=== PATIENT | male | born 1975 | race Caucasian/White ===

== ENCOUNTER 2024-06-30 19:12 | Emergency (ER) | payer OTHER, SELFPAY ==
[2024-06-30 19:14] VITALS: BP 198/98
[2024-06-30 19:38] LABS: % Basophils 0.8 % (0-2); % Immature Granulocytes 0.9 % (0-0.5); % Lymphocytes 21.7 % (20.5-51.1); % Monocytes 7.2 % (1.7-9.3); % Neutrophils 66.4 % (42.2-75.2); Absolute Basophils 0.1 10^3/uL (0-0.2); Absolute Eosinophils 0.2 10^3/uL (0-0.7); Absolute Immature Granulocytes 0.1 10^3/uL (0-0.05); Absolute Lymphocytes 1.4 10^3/uL (1.2-3.4); Absolute Monocytes 0.5 10^3/uL (0.1-0.6); Absolute Neutrophils 4.3 10^3/uL (1.4-6.5); Hematocrit 36.8 % (39.0-52.0); Mean Corp Hgb Conc. 35.3 g/dL (33.0-37.0); Mean Corpuscular Hgb 31.1 pg (27.0-31.0); Nucleated Red Blood Cells % 0 % (-); Platelet Count 219 10^3/uL (130-400); Red Blood Cell Count 4.18 10^6/uL (4.70-6.10); Red Cell Dist. Width 13.2 % (11.5-14.5); White Blood Cell Count 6.4 10^3/uL (4.8-10.8)
[2024-06-30 19:39] LABS: Urine Albumin 3+ (Neg - Trace); Urine Bilirubin Negative (Negative); Urine Character Clear (Clear); Urine Color Yellow; Urine Glucose 4+ (Negative); Urine Ketone Negative (Negative); Urine Leukocyte 2+ (Negative); Urine Nitrite Negative (Negative); Urine Occult Blood 3+ (Negative); Urine Specific Gravity 1.015 (<1.030); Urine Urobilinogen Negative (Neg - 1+)
[2024-06-30 19:49] LABS: ALT (SGPT) 52 U/L (0-50); AST (SGOT) 30 U/L (17-59); Albumin 4.4 g/dl (3.5-5.0); Alkaline Phosphatase 91 U/L (38-126); Blood Urea Nitrogen 25 mg/dl (9-20); Calcium 9.8 mg/dl (8.4-10.2); Carbon Dioxide 25 mmol/L (22-30); Chloride 102 mmol/L (98-107); Glucose 243 mg/dl (70-99); Potassium 4.7 mmol/L (3.5-5.1); Sodium 137 mmol/L (135-145); Total Bilirubin 0.8 mg/dl (0.2-1.3); Total Protein 7.2 g/dl (6.3-8.2); eGFR > 60.00
[2024-06-30 19:56] LABS: Urine Bacteria Few (Negative); Urine Yeast Few (Negative)
--- NOTE | 2024-06-30 22:21 | ED.GENMED ---
History of Present Illness
General
Chief Complaint: Flank Pain
Time Seen by Provider: 06/30/24 22:21
History of Present Illness
History of Present Illness:
TIME OF INITIAL ENCOUNTER: 10:20 PM
HPI: The patient presents with pain in the left infrascapular region that started about a week ago and has been persisting despite trying tramadol. The tramadol caused constipation. He then stopped tramadol. The pain then progressed down to the
left flank region. Ibuprofen has not helped. No fevers. No abdominal pain.
EXAM:
GENERAL: Elevated BMI, appears uncomfortable, laying on his right side
HEENT: Moist oral mucosa
CARDIOVASCULAR: No murmurs, borderline tachycardic heart rate, regular rhythm, No chest wall tenderness
PULMONARY: No respiratory distress, breath sounds are clear and equal
ABDOMEN: Soft with no peritoneal signs, no tenderness
NEUROLOGIC: Excellent strength all extremities, no coordination deficits
PSYCHIATRIC: Appropriate mental status, normal insight and judgement
BACK: Some vague tenderness to palpation in the left infrascapular region and left CVA region, negative straight leg raise
EXTREMITIES: Nontender, no edema, moves all extremities equally
SKIN: No rash, no lesions
NUMBER AND COMPLEXITY OF PROBLEMS ADDRESSED AT THE ENCOUNTER
� Chronic conditions affecting care: Hyperlipidemia, IDDM, ADHD, CLEOPATRA on CPAP
� Acute Exacerbation and/or Progression of Chronic Illness: This is an acute problem
� Differential Diagnosis includes: Musculoskeletal back pain, ureteral stone, pyelonephritis, UTI, constipation
AMOUNT AND/OR COMPLEXITY OF DATA TO BE REVIEWED AND ANALYZED
� I performed an independent evaluation of and my interpretation is:
EKG:
CT: Noncontrast CT of the abdomen pelvis shows no hydronephrosis and no sign of stone; I personally viewed the CT I do not see any clear evidence of constipation
X-rays:
Laboratory Studies: White count normal, hemoglobin normal, chemistries unremarkable BUN is 25 and glucose is 243, 3+ blood noted on urinalysis, 6-10 white cells
Other:
� Review of other/old records: Reviewed records, patient's blood sugars had been 100-300 range in the past
� Clinical information was obtained by an independent historian: None needed
� Prescriptions/Medications Considered but not given:
� Further testing considered but not performed:
RISK OF COMPLICATIONS AND/OR MORBIDITY OR MORTALITY OF PATIENT MANAGEMENT
� Social determinants of health affecting care: Lives at home
� Discussion with other providers:
� Escalation of care including admission/observation vs risk of discharge considered: The patient primarily has pain in the left side of the back described as stabbing and worsened with certain position changes. CT imaging
unremarkable. Patient does have some blood in the urine but no sign of stone. White blood cell count is normal.
ANY OTHER UPDATES:
11:30 PM: Patient reports some improvement after Toradol was given�he requested an additional dose
12:25 AM: Patient reports overall improvement after second dose of Toradol was given. Suspect musculoskeletal etiology he will increase NSAID use at home. Renal function normal.
Past History
Past History
ED Past Medical History: HTN, Hypercholesterolemia, IDDM, Psychiatric (ADHD) and Other (Pancreatitis, sleep apnea, morbid obesity, insomnia)
ED Past Surgical History: Other (Hernia repair)
Social History
Tobacco: Non-smoker
Alcohol: None
Drug: None
Personal:
Living: with family
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
Family History
Family History: Other (Noncontributory)
Phy Exam
Physical Exam
Physical Exam:
See HPI
Course
Orders/Labs/Results
Orders:
Orders
06/30/24 19:27
Complete Blood Count/With Diff Urgent
Comprehensive Metabolic Panel Urgent
Urinalysis Reflex To Culture Urgent
Date Specimen was Collected: 06/30/24
Time Specimen was Collected: 19:17
Urine Microscopic Reflex Cult Urgent
Urine Culture Urgent
INDIA Source: U
Specimen Description:
Date Specimen was Collected: 06/30/24
Time Specimen was Collected: 19:17
06/30/24 19:58
Abdomen/Pelvis wo Contrast CT [CT Abd/pelvis Wo Iv Cont] Urgent
Comment:
Reason For Exam: C/O FLANK PAIN
06/30/24 22:30
0.9% Sodium Chloride 1000 ml [Nss] 1,000 ml IV BOLUS
Ketorolac [Toradol] 15 mg IV NOW STA
06/30/24 23:37
Ketorolac [Toradol] 15 mg IV NOW STA
Abnormal Lab Results
06/30/24
19:27
RBC 4.18 L 10^6/uL
(4.70-6.10)
Hct 36.8 L %
(39.0-52.0)
MCH 31.1 H pg
(27.0-31.0)
MPV 11.0 H fL
(7.4-10.4)
Abs Immat Gran (auto) 0.1 H 10^3/uL
(0-0.05)
Immature Gran % 0.9 H %
(0-0.5)
BUN 25 H mg/dl
(9-20)
Glucose 243 H mg/dl
(70-99)
ALT 52 H U/L
(0-50)
Ur Occult Blood Reflex 3+ A
(Negative)
Leukocyte Esterase Rfl 2+ A
(Negative)
Urine RBC 7-10 A /HPF
(0-2)
Urine Bacteria (Reflex) Few A
(Negative)
Urine Yeast Few A
(Negative)
Urine Glucose 4+ A
(Negative)
Urine Albumin (Reflex) 3+ A
(Neg - Trace)
06/30/24 19:27
06/30/24 19:27
Vital Signs
Initial and Last Documented VS:
Initial Vital Signs
Temp Pulse Resp BP Pulse Ox
36.9 C 117 18 198/98 98
06/30/24 19:14 06/30/24 19:14 06/30/24 19:14 06/30/24 19:14 06/30/24 19:14
Last Documented Vital Signs
Temp Pulse Resp BP Pulse Ox
36.9 C 101 18 136/70 97
06/30/24 19:14 06/30/24 23:15 06/30/24 23:15 06/30/24 23:00 06/30/24 23:15
*Critical Care Note
Total Time (30-74mins, 75-104mins- exclusive of procedures): Not Applicable
ED Attending Note
-
Portions of this chart may have been created with voice recognition software.� Occasional wrong word or��sound alike� substitutions may have occurred due to the inherent limitations of voice recognition software.
Discharge Plan
Departure
Prescriptions:
No Action
fenofibrate nanocrystallized 145 MG tablet
145 mg PO DAILY 0RF
lisinopril 20 MG tablet
20 mg PO DAILY Qty: 1 0RF
Rx Instructions:
STart it after 2 days on 03/08/17
dextroamphetamine-amphetamine [Adderall] 30 MG tablet
30 mg PO DAILY Qty: 1 0RF
dulaglutide [Trulicity] 1.5 MG/0.5 ML pen injector
1.5 mg SQ WEEKLY
empagliflozin-metformin [Synjardy] 1 EACH tablet
1 tab PO BID
zolpidem [Ambien CR] 12.5 MG tablet,ext release multiphase
12.5 mg PO HS
ibuprofen 200 MG tablet
600 - 800 mg PO TIDPRN PRN (Reason: pain ) Qty: 1 0RF
Rx Instructions:
do not take more than 2400 mg in 24 hrs
Novolog:
0 units SC ACHS
Patient Comments:
slinding scale
Referrals:
Case Christian MD [Family Provider] -
Interventions
Interventions:
*Risk Screen - Suicide Last Done: 06/30/24 19:14
*General Assessment Last Done: 06/30/24 19:14
*Neglect/Abuse Screening Last Done: 06/30/24 19:14
ED- Fall Risk Assessment Last Done: 06/30/24 23:02
*ED COVID-19 Vaccine History Last Done: 06/30/24 19:14
ZJ-Cbzvhz-Ykowtbuufc Assessment Last Done: 06/30/24 23:01
ED-Male Genitourinary Assessment Last Done: 06/30/24 23:01
Discharge Date and Time
Print Language: [id number]
[2024-06-30] MEDS: TORADOL 15 MG IV ×2 (22:53→23:58)
[2024-06-30 23:00] VITALS: BP 136/70
[2024-07-01 00:33] VITALS: BP 164/96
== END 2024-07-01 00:37 | disposition home or self-care (01) ==
LOC: EMR 19:12
PROVIDERS: Emergency Medicine; EMERGENCY PHYSICIAN Emergency Medicine; FAMILY PHYSICIAN Family Medicine
DX: M54.9 Dorsalgia, unspecified (principal); E78.00 Pure hypercholesterolemia, unspecified; E11.9 Type 2 diabetes mellitus without complications; F90.9 Attention-deficit hyperactivity disorder, unspecified type; G47.30 Sleep apnea, unspecified
CPT/HCPCS: 99284; 96374; 96376; 74176; 80053; 81003; 81015; 85025; 87077; 87086; 87147